=== PATIENT | female | born 1990 | race Caucasian/White ===

== ENCOUNTER 2024-03-18 12:32 | Outpatient (RCR) | payer OTHER, SELFPAY ==
[2024-03-18] MEDS: RHO(D) IMMUNE GLOBULIN 300 MCG/2 ML SYRINGE IM (11:32)
== END 2024-03-18 12:45 | disposition home or self-care (01) ==
LOC: ANHOBOP 12:32
PROVIDERS: PCP Advanced Practice Midwife; Visit Provider Advanced Practice Midwife
DX: O20.0 Threatened abortion (principal); Z29.13 Encounter for prophylactic Rho(D) immune globulin; O36.0190 Maternal care for anti-D [Rh] antibodies, unspecified trimester, not applicable or unspecified; Z3A.00 Weeks of gestation of pregnancy not specified
CPT/HCPCS: 36415; 85461; 86850; 86900; 86901; 90384; 96372; J2790